=== PATIENT | male | born 1930 | race Two or more races ===

== ENCOUNTER 2017-02-11 13:24 | Emergency (ER) | payer OTHER ==
[~2017-02-11] VITALS: Ht 162.6 cm; Wt 58.5 kg
--- NOTE | 2017-02-11 13:25 | NUR ---
Bibra from home due to right side facial droop, last known well was last night. Patient recieved, awake, oriented to self only. No evidence of pain or discomfort noted. Patient sating well on room air, skin is warm to touch and non diaphoretic. Patient afebrile. Gowned and placed on tele monitor. medical office technologist at for ekg. Iv noted on rac 20. intact and patent.
--- NOTE | 2017-02-11 13:34 | NUR ---
Jacky gomez in ED - 02/11/17 at 1441 by LEONCIO Dadiology tech at for chest xray
--- NOTE | 2017-02-11 13:34 | NUR ---
customer data technician at bs for chest xray
--- NOTE | 2017-02-11 13:36 | NUR ---
Patient taken to ct for head ct
--- NOTE | 2017-02-11 14:20 | NUR ---
PATIENT ASSIGNED TO 316
[2017-02-11] MEDS ORDERED: CLOP75TA2 PO (14:25)
[2017-02-11] MEDS ORDERED: ATOR20TA PO (14:25)
[2017-02-11] MEDS ORDERED: METF500T4 PO ×3 (14:25)
[2017-02-11] MEDS ORDERED: ATEN25TA PO (14:25)
[2017-02-11] MEDS ORDERED: LISI10TA5 PO (14:25)
[2017-02-11] MEDS ORDERED: GLIP10TA11 PO (14:31)
[2017-02-11 14:38] LABS: APPEARANCE,URINE Clear (CLEAR); BILIRUBIN,URINE Negative (NEGATIVE); BLOOD, URINE Trace-intact Ery/uL (NEGATIVE); COLOR,URINE Yellow (YELLOW); KETONES,URINE Negative (NEGATIVE); LEUKOCYTE ESTERASE ,URINE Negative (NEGATIVE); NITRITE, URINE Negative (NEGATIVE); PROTEIN,URINE Negative (NEGATIVE); UGLUCOSE Negative (NEGATIVE)
[2017-02-11 14:51] LABS: ADD URINE CULTURE NO; BACTERIA,URINE None seen /HPF (None Seen); CANNABINOID, URINE NEGATIVE (NEGATIVE); PHENCYCLIDINE SCREEN,URINE NEGATIVE (NEGATIVE); RBC,URINE 0-2 /HPF (0-2); SQUAMOUS EPITHELIAL CELL,UR Few /HPF (None Seen)
[2017-02-11 14:58] LABS: BASOPHILS % (AUTO) 0.2 % (0.0-2.0); EOSINOPHILS # (AUTO) 0.3 /CMM (0.0-0.7); EOSINOPHILS % (AUTO) 5.1 % (0.0-6.0); HEMATOCRIT 35 % (39-51); LYMPHOCYTES # (AUTO) 2.3 /CMM (0.8-4.8); LYMPHOCYTES % (AUTO) 39.4 % (20.0-44.0); MEAN CORPUSCULAR HEMOGLOBIN 33 PG (26.0-33.0); MEAN CORPUSCULAR HGB CONC 34 g/dl (31.0-36.0); MEAN CORPUSCULAR VOLUME 96 fL (80-96); MONOCYTES # (AUTO) 0.4 /CMM (0.1-1.30); MONOCYTES % (AUTO) 7.7 % (2.0-12.0); NEUTROPHILS # (AUTO) 2.7 /CMM (1.8-8.9); NEUTROPHILS % (AUTO) 47.6 % (43.0-81.0); PLATELET COUNT (AUTO) 207 /CMM (150-450); RDW COEFFICIENT OF VARIATION 14.6 (11.5-15.0); RED BLOOD CELL COUNT(AUTO) 3.68 MIL/uL (4.5-6.0); WHITE BLOOD COUNT (AUTO) 5.7 K/uL (4.3-11.0)
[2017-02-11 15:09] LABS: CALCIUM, SERUM 8.7 mg/dL (8.5-10.1); CARBON DIOXIDE 31 mmol/L (21-32); CHLORIDE 107 mmol/L (98-107); CREATININE 1.1 mg/dL (0.6-1.3); GLUCOSE 104 mg/dL (74-106); POTASSIUM 3.9 mmol/L (3.5-5.1); SODIUM SERUM 146 mmol/L (136-145); UREA NITROGEN, BLOOD 13 mg/dL (7-18)
[2017-02-11 15:13] LABS: INR 1.03 (0.87-1.13); PROTHROMBIN TIME 10.7 SECS (9.5-12.7)
[2017-02-11 15:15] LABS: ALANINE AMINOTRANSFERASE 25 U/L (12-78); ALBUMIN 2.9 g/dL (3.4-5.0); ALCOHOL, BLOOD < 3 mg/dL (0-0); ALKALINE PHOSPHATASE 124 U/L (46-116); ASPARTATE AMINOTRANSFERASE 30 U/L (15-37); BILIRUBIN,DIRECT 0.2 mg/dL (0.0-0.2); BILIRUBIN,TOTAL 0.6 mg/dL (0.2-1.0); TOTAL PROTEIN, SERUM 7.3 g/dL (6.4-8.2)
[2017-02-11 15:17] LABS: TROPONIN I 0.031 ng/mL (0.00-0.056)
--- NOTE | 2017-02-11 15:32 | NUR ---
CALLED [facility], SPOKE WITH DOPE DRY HOUSE OPERATOR. AWAITING FOR ANITA PRESLEY TO CALL BACK.
[2017-02-11 15:40] LABS: THYROID STIMULATING HORMONE 1.683 uIU/mL (0.358-3.74)
--- NOTE | 2017-02-11 16:29 | NUR ---
RECEIVED A CALL FROM [facility] TRANSFER CLERK. PATIENT GOING TO [facility], ACCEPTED BY DR. PATEL. RN TO RN REPORT . ALS TRANSPORTATION ARRANGED BT [facility] ETA 9256
--- NOTE | 2017-02-11 16:41 | NUR ---
NOTIFIED MD SHERWOOD OF BP 169/95
--- NOTE | 2017-02-11 17:00 | NUR ---
report given to DILMA Wooten from [facility]
[2017-02-11 17:50] VITALS: BP 158/90
--- NOTE | 2017-02-11 17:53 | NUR ---
Patient was transferred to . Vital signs stable
== END 2017-02-11 17:55 | disposition short-term general hospital (02) ==
LOC: ER 13:26
DX: G93.40 Encephalopathy, unspecified (principal); D64.9 Anemia, unspecified; I10 Essential (primary) hypertension; E10.9 Type 1 diabetes mellitus without complications; E78.5 Hyperlipidemia, unspecified; F03.90 Unspecified dementia, unspecified severity, without behavioral disturbance, psychotic disturbance, mood disturbance, and anxiety; R79.1 Abnormal coagulation profile; R51 Headache; Z86.73 Personal history of transient ischemic attack (TIA), and cerebral infarction without residual deficits
CPT/HCPCS: 36415; 70450-TC; 71010-TC; 80048-TC; 80076-TC; 80305; 81000-TC; 82962-TC; 84443-TC; 84484-TC; 85025-TC; 85730-TC; A4606; G0480; Z7610

== ENCOUNTER 2017-06-16 18:23 | Inpatient (IN) | payer OTHER ==
[~2017-06-16] VITALS: Ht 167.6 cm; Wt 47.6 kg
[~2017-06-16 18:23] MED LIST: ATEN25TA PO; ATOR20TA PO; CLOP75TA2 PO; GLIP10TA11 PO; LISI10TA5 PO; METF500T4 PO
--- NOTE | 2017-06-16 18:30 | NUR ---
bIbra81 from home for low 02 saturation. Patient received on o2 via non rebreather @15lpm. Patient appears in distress. Skin is warm to touch and non diaphoretic. Per report patient is on hospice care and was put off hospice 10 mins prior rescue arrival. MD lazo at [facility]
--- NOTE | 2017-06-16 18:40 | NUR ---
bipap in placed bt Gil rt-- setting 06/04
[2017-06-16 18:41] VITALS: BP 96/41
--- NOTE | 2017-06-16 18:54 | NUR ---
laborer electroplating at bedside for blood draw
[2017-06-16 18:59] LABS: BASOPHILS % (AUTO) 0.2 % (0.0-2.0); EOSINOPHILS % (AUTO) 0.4 % (0.0-6.0); HEMATOCRIT 30 % (39-51); HEMOGLOBIN 9.4 g/dL (13.5-17.5); LYMPHOCYTES # (AUTO) 0.8 /CMM (0.8-4.8); LYMPHOCYTES % (AUTO) 12.2 % (20.0-44.0); MEAN CORPUSCULAR HEMOGLOBIN 32 PG (26.0-33.0); MEAN CORPUSCULAR HGB CONC 32 g/dl (31.0-36.0); MEAN CORPUSCULAR VOLUME 99 fL (80-96); MONOCYTES # (AUTO) 0.1 /CMM (0.1-1.30); MONOCYTES % (AUTO) 2.1 % (2.0-12.0); NEUTROPHILS # (AUTO) 5.4 /CMM (1.8-8.9); NEUTROPHILS % (AUTO) 85.1 % (43.0-81.0); PLATELET COUNT (AUTO) 112 /CMM (150-450); RED BLOOD CELL COUNT(AUTO) 3.01 MIL/uL (4.5-6.0); WHITE BLOOD COUNT (AUTO) 6.3 K/uL (4.3-11.0)
--- NOTE | 2017-06-16 19:01 | NUR ---
DR. SHERWOOD SAID TO HOLD OFF ON CT SCAN FOR NOW, ER WILL CALL WHEN READY.
[2017-06-16 19:12] LABS: INR 1.18 (0.87-1.13); PROTHROMBIN TIME 12.4 SECS (9.5-12.7)
[2017-06-16 19:15] LABS: ALBUMIN 1.8 g/dL (3.4-5.0); ALKALINE PHOSPHATASE 83 U/L (46-116); ASPARTATE AMINOTRANSFERASE 17 U/L (15-37); BILIRUBIN,DIRECT 0.1 mg/dL (0.0-0.2); BILIRUBIN,TOTAL 0.4 mg/dL (0.2-1.0); CALCIUM, SERUM 7.9 mg/dL (8.5-10.1); CARBON DIOXIDE 31 mmol/L (21-32); GLUCOSE 165 mg/dL (74-106); TOTAL PROTEIN, SERUM 6.9 g/dL (6.4-8.2); UREA NITROGEN, BLOOD 52 mg/dL (7-18)
--- NOTE | 2017-06-16 19:20 | NUR ---
report given to lele sinclair for continuity of care
[2017-06-16 19:24] LABS: ALANINE AMINOTRANSFERASE < 6 U/L (12-78)
[2017-06-16 19:27] LABS: CHLORIDE 135 mmol/L (98-107); POTASSIUM 2.6 mmol/L (3.5-5.1); SODIUM SERUM 173 mmol/L (136-145)
[2017-06-16 19:31] LABS: TROPONIN I 0.681 ng/mL (0.00-0.056)
--- NOTE | 2017-06-16 19:34 | NUR ---
200ml Urine output noted. Urine obtained & sent to lab. FC d/c per family request.
--- NOTE | 2017-06-16 19:38 | NUR ---
DIRECTOR OF CULTURE at bedside for ABG draw.
--- NOTE | 2017-06-16 19:39 | NUR ---
Dr. Ng at bedside for update on pt status.
--- NOTE | 2017-06-16 19:50 | NUR ---
Sent to CT via [facility].
--- NOTE | 2017-06-16 19:58 | NUR ---
pt back fr CT on continuous BIPAP w/ continuous cardiac monitoring, resp even & unlabored, nad noted. Family at bedside.
[2017-06-16] MEDS ORDERED: IV NS 0.9% 500 ML BAG IV ONE (20:00)
[2017-06-16 20:07] LABS: APPEARANCE,URINE Slightly Cloudy (CLEAR); BILIRUBIN,URINE Negative (NEGATIVE); BLOOD, URINE Trace-intact Ery/uL (NEGATIVE); COLOR,URINE Yellow (YELLOW); KETONES,URINE Negative (NEGATIVE); LEUKOCYTE ESTERASE ,URINE Negative (NEGATIVE); NITRITE, URINE Negative (NEGATIVE); PH,URINE 5.5 (5.0-8.0); PROTEIN,URINE 30 mg/dl (NEGATIVE); UGLUCOSE Negative (NEGATIVE); UROBILINOGEN,URINE 0.2 EU/dL (0.2)
--- NOTE | 2017-06-16 20:09 | NUR ---
CALLED NURSING SUP. FOR ICU BED
[2017-06-16 20:13] LABS: BACTERIA,URINE Few /HPF (None Seen); FINE GRANULAR CASTS,URINE Few /LPF (None Seen); HYALINE CASTS, URINE Few /LPF (None Seen); SQUAMOUS EPITHELIAL CELL,UR Rare /HPF (None Seen); WBC,URINE 0-2 /HPF (0-3)
[2017-06-16] MEDS ORDERED: PIPERACILLIN /TAZOBACTAM 2.25 G VIAL IV ONE (20:29)
[2017-06-16] MEDS ORDERED: VANCOMYCIN 1 GM in IV D5W 250 ML IV ONE (20:30)
[2017-06-16] MEDS ORDERED: VANCOMYCIN 1 GM VIAL ONE (20:30)
[2017-06-16] MEDS ORDERED: IV NS 0.9% 1,000 ML BAG IV ONE (20:30)
[2017-06-16] MEDS ORDERED: POTASSIUM CL. PREMIX PERIPHER. 50 ML ONE ×2 (20:30→21:48)
[2017-06-16] MEDS ORDERED: PIPERACILLIN /TAZOBACTAM 2.25 G in IV D5W 50 ML IV ONE (20:30)
[2017-06-16] MEDS ORDERED: ASPIRIN 300 MG/SUPP.RECT RC ONE ×2 (20:30→20:31)
[2017-06-16 20:32] LABS: ABG BASE EXCESS -0.5 mmol/L; ABG PCO2 34.2 mmHg (35.0-45.0); ABG PH 7.447 (7.350-7.450); ABG PO2 67.1 mmHg (75.0-100.0); AaDO2 611.7 mmHg; COHb 0.1 % (0.5-1.5); MetHb 0.5 % (0.0-1.5); O2Hb 91.4 % (94.0-97.0); PEEP,BG 5 cm H2O; SITE, ABG Right Radial; VENT MODE, BG Bipap 15/5 rr20
[2017-06-16] MEDS: POTASSIUM CL. PREMIX PERIPHER. 50 ML IV SCH ×3 (21:01→23:18)
--- NOTE | 2017-06-16 21:14 | NUR ---
Aron PICC RN at bedside for PICC line insertion.
--- NOTE | 2017-06-16 21:20 | NUR ---
Report given to Kimmy NUT TIGHTENER for ROBERTO.
[2017-06-16] MEDS ORDERED: IV NS 0.9% 1,000 ML IV PRN (21:38)
--- NOTE | 2017-06-16 21:52 | NUR ---
Repeat CXR at bedside, verify placement PICC line.
[2017-06-16] MEDS ORDERED: ONDANSETRON HCL/PF 4 MG/2 ML VIAL IVP PRN (22:00)
[2017-06-16] MEDS ORDERED: HYDROCODONE/APAP 5/325MG 1 EACH TABLET PO PRN (22:00)
[2017-06-16] MEDS ORDERED: MAGNESIUM HYDROXIDE 30 ML UDC PO PRN (22:00)
[2017-06-16] MEDS ORDERED: Z GUARD REMEDY 2 OZ OINT TP PRN (22:00)
[2017-06-16] MEDS ORDERED: MAG HYDROX/AL HYDROX/SIMETH 30 ML UDC PO PRN (22:00)
[2017-06-16] MEDS ORDERED: ACETAMINOPHEN 325 MG TABLET PO PRN (22:00)
--- NOTE | 2017-06-16 22:22 | NUR ---
PROCUREMENT AGENT at bedside to assist pt transfer via ALS protocol to ICU rm [id number].
--- NOTE | 2017-06-16 22:30 | NUR ---
ADMISSION. RECEIVED THE PT FROM ER VIA GURNEY. PT OBTUNDED. NONVERBAL. DOES NOT FOLLOW COMMANDS. HISTOLOGIC TECHNICIAN SHOWING NSR. LT CHEST WALL PACEMAKER.RT UPPER ARM PICC LINE. IVF NS 125ML/H.HOB ELEVATED. NPO. AFEBRILE. WOUND PICTURE TAKEN AND PLACED IN THE CHART. HOB ELEVATED. TURN AND REPOSITION Q2H. BIPAP ON. SETTINGS 15/5, RATE 20, FIO2 100%. SAT 98%. NO ACUTE DISTRESS NOTED. TURN AND REPOSITION Q2H, WILL CONTINUE TO MONITOR VITALS.
[2017-06-16 22:48] VITALS: BP 131/67
[2017-06-16 23:00] VITALS: BP 113/44
[2017-06-16 23:02] VITALS: BP 130/62
[2017-06-16 23:16] VITALS: BP 113/44
[2017-06-16 23:30] VITALS: BP 109/54
[2017-06-17] VITALS (37 sets, daily range): BP systolic 98–142; BP diastolic 41–76
[2017-06-17] MEDS ORDERED: POTASSIUM CL. PREMIX PERIPHER. 50 ML ONE (00:07)
[2017-06-17] MEDS: POTASSIUM CL. PREMIX PERIPHER. 50 ML IV SCH ×6 (00:14→12:53)
--- NOTE | 2017-06-17 01:17 | NUR ---
CLEANING MANAGER. RADHA 0000 NOT GIVEN, LAST DOSE WAS 2044, SHYAM UP MADE AWARE
--- NOTE | 2017-06-17 01:25 | NUR ---
ORTHOPEDIC SHOES SALESPERSON. POTASSIUM TOTAL 4 BAGS. GIVEN.
--- NOTE | 2017-06-17 03:24 | NUR ---
WASTE DISPOSAL LEAKAGE TESTER. AM CARE, ORAL CARE, BED BATH GIVEN. LINEN CHANGED. REMAINING SAME BIPAP SETTING TOLERATED WELL. SAT 98%. NO ACUTE DISTRESS NOTED, NON DESTRUCTIVE EVALUATION SPECIALIST SHOWING NSR. IV RT UPPER ARM PICC LINE. IVF NS 125ML/H. HOB ELEVATED. NPO. TURN AND REPOSITION Q2H. WILL CONTINUE TO MONITOR VITALS.
[2017-06-17 04:35] LABS: BASOPHILS % (AUTO) 0.1 % (0.0-2.0); EOSINOPHILS % (AUTO) 0.4 % (0.0-6.0); HEMATOCRIT 27 % (39-51); HEMOGLOBIN 8.8 g/dL (13.5-17.5); LYMPHOCYTES # (AUTO) 0.7 /CMM (0.8-4.8); MEAN CORPUSCULAR HEMOGLOBIN 36 PG (26.0-33.0); MEAN CORPUSCULAR HGB CONC 33 g/dl (31.0-36.0); MEAN CORPUSCULAR VOLUME 108 fL (80-96); MONOCYTES # (AUTO) 0.1 /CMM (0.1-1.30); MONOCYTES % (AUTO) 1.5 % (2.0-12.0); NEUTROPHILS # (AUTO) 7.2 /CMM (1.8-8.9); PLATELET COUNT (AUTO) 82 /CMM (150-450); RDW COEFFICIENT OF VARIATION 18.3 (11.5-15.0); RED BLOOD CELL COUNT(AUTO) 2.46 MIL/uL (4.5-6.0); WHITE BLOOD COUNT (AUTO) 8.1 K/uL (4.3-11.0)
[2017-06-17 04:49] LABS: CARBON DIOXIDE 27 mmol/L (21-32); CREATININE 1.9 mg/dL (0.6-1.3); GLUCOSE 168 mg/dL (74-106); MAGNESIUM 2.4 mg/dL (1.8-2.4); PHOSPHORUS 2.9 mg/dL (2.5-4.9); POTASSIUM 3.1 mmol/L (3.5-5.1); UREA NITROGEN, BLOOD 53 mg/dL (7-18)
[2017-06-17 04:57] LABS: CHLORIDE 136 mmol/L (98-107); SODIUM SERUM 173 mmol/L (136-145)
[2017-06-17 04:58] LABS: CHOLESTEROL 111 mg/dL (<200); HDL CHOLESTEROL 11 mg/dL (40-60); LDL 69 mg/dL (0-99); THYROID STIMULATING HORMONE 1.232 uIU/mL (0.358-3.74); TRIGLYCERIDES 130 mg/dL (30-150)
--- NOTE | 2017-06-17 05:08 | NUR ---
PT REMAINS ON BIPAP. TOLERATING SETTINGS. PT IS NON RESPONSIVE. FIO2 TITRATED TO 60% RN NOTIFIED. O2 SAT 100%. BIPAP ALARMS SET AND AUDIBLE.
[2017-06-17] MEDS ORDERED: PIPERACILLIN /TAZOBACTAM 3.375 G VIAL IV ONE (05:13)
[2017-06-17] MEDS: PIPERACILLIN /TAZOBACTAM 3.375 G in IV D5W 50 ML IV SCH ×3 (05:21)
[2017-06-17 05:32] LABS: BAND % (MANUAL) 38 % (0.0-5.0); LYMPHOCYTES % (MANUAL) 8 % (16-48); METAMYELOCYTES % 1 % (0-0); MONOCYTES % (MANUAL) 1 % (0-11.0); NEUTROPHILS % (MANUAL) 52 (42-76)
[2017-06-17] MEDS ORDERED: IV D5W 1,000 ML IV PRN (06:00)
[2017-06-17] MEDS ORDERED: FEE PK DOSING 1 MIN EA MC ONE ×2 (06:46→11:40)
--- NOTE | 2017-06-17 06:55 | NUR ---
IMPROVEMENT SPECIALIST. CRITICAL LAB CALLED FOR Jake TRAN RESULT. >35.2. PAGED GABE. ORDERED . VQ SCAN. CALLED PT DAUGHTER YUNIER FOR CONSENT . SHE WANTS ASK BROTHER. WE ARE WAITING FOR CALL BACK.
--- NOTE | 2017-06-17 07:39 | NUR ---
RT PATIENT REC'D ON BIPAP WITH SETTINGS SET PER MD. PATIENT TOLERATING WELL. BIPAP ALARMS CHECKED + AUDIBLE. JULIANNA CUTLER AT HOB. CONT CURRENT PLAN OF CARE. Addendum: 06/17/17 at 1326 by IRINA FONG RT Amended: Links added.
[2017-06-17] MEDS: PANTOPRAZOLE 40 MG VIAL IV SCH (08:16)
[2017-06-17] MEDS: glipiZIDE 10 MG TABLET PO SCH ×2 (08:16→17:36)
[2017-06-17] MEDS: CLOPIDOGREL BISULFATE 75 MG TABLET PO SCH (08:17)
[2017-06-17] MEDS: ATENOLOL 25 MG TABLET PO SCH ×2 (08:17→17:00)
[2017-06-17 08:53] LABS: THYROID STIMULATING HORMONE 1.292 uIU/mL (0.358-3.74)
[2017-06-17] MEDS ORDERED: Z GUARD REMEDY 2 OZ OINT TP PRN (10:30)
[2017-06-17] MEDS ORDERED: HYDROGEL DRESSING 90 GM TUBE TP PRN (10:30)
--- NOTE | 2017-06-17 10:31 | NUR ---
WOUND CARE CONSULT PATIENT SEEN AND SKIN INTEGRITY ASSESSMENT DONE. SEE SUPERVISOR PILE DRIVING ASSESSMENT IN PCS FOR TODAY ALONG WITH ALL RECOMMENDATIONS. PATIENT WITH YAMILETH AT 13, PATIENT NOTED TO BE VERY BONY AND FRAIL. PATIENT PRESENTS WITH SACRAL STAGE 2 PRESSURE ULCER AND LEFT OUTER EAR INTACT DTI POA. CONTINUE USE OF Z GUARD FOR SKIN/MOISTURE PROTECTION, CONTINUE TURNING Q 2 HOURS PATIENT CONDITION PERMITS, CONTINUE BILATERAL HEEL FLOATING BEST POSSIBLE. PATIENT NOTED TO HAVE SEVERE BILATERAL LE CONTRACTURES AND OFF LOADING IS DIFFICULT. 1ST STEP LOW AIRLOSS MATTRESS IN PLACE FOR TMT AND SKIN MANAGEMENT. CONTINUE ALL PRESSURE ULCER PREVENTION MEASURES PER CURRENT PLAN OF CARE. ALL DISCUSSED WITH NURSING AT THE BEDSIDE. Addendum: 06/17/17 at 1036 by TERESE CHEN WNDNU Amended: Links added.
[2017-06-17 10:34] LABS: CALCIUM, SERUM 6.9 mg/dL (8.5-10.1); CARBON DIOXIDE 28 mmol/L (21-32); CREATININE 2.1 mg/dL (0.6-1.3); GLUCOSE 224 mg/dL (74-106); POTASSIUM 3.2 mmol/L (3.5-5.1); UREA NITROGEN, BLOOD 50 mg/dL (7-18)
[2017-06-17 10:52] LABS: SODIUM SERUM 172 mmol/L (136-145)
[2017-06-17 10:53] LABS: CHLORIDE 134 mmol/L (98-107)
[2017-06-17] MEDS ORDERED: DEXTROSE 50%-WATER 50 ML DISP.SYRIN IV PRN (11:30)
[2017-06-17] MEDS: BLOOD SUGAR DIAGNOSTIC 1 EACH STRIP IN SCH ×3 (11:41→23:35)
[2017-06-17] MEDS: PIPERACILLIN /TAZOBACTAM 2.25 G in IV D5W 50 ML IV SCH ×3 (11:41→23:35)
[2017-06-17] MEDS: INSULIN REGULAR, HUMAN 100 UNIT/ML 3 ML VIAL SQ PRN ×2 (12:03→23:39)
[2017-06-17] MEDS: Potassium Chloride 20 MEQ in IV D5/0.45 NACL 1,000 ML IV PRN ×2 (14:00→22:15)
--- NOTE | 2017-06-17 15:12 | NUR ---
CUFF TURNER MACHINE OPERATOR NOTE 0720: Received patient obtunded. On Bipap, no respiratory distress noted at this time. VSS, A pacing 70 on the monitor. EFRAÍN PICC intact, IVF infusing as ordered, on D5W at this time. Localizes to deep pain. 0800: RT placed FIO2 from 60% to 40%, patient tolerated so far. 0830: Placed Chong cath as ordered. 0900: S/E by Dr. Soto, said ok to DC VQ scan. 1300: changed IVF with D5 1/2 NS @ 125. 1330: S/E by Dr. Martinez, no new order at this time. Patient able to open eyes. 1500: forest ranger technician at bedside.
[2017-06-17] MEDS: HYDROGEL DRESSING 90 GM TUBE TP SCH (16:48)
[2017-06-17 17:38] LABS: URINE SODIUM, RANDOM 13 mmol/l (40-220)
[2017-06-17] MEDS ORDERED: ATORVASTATIN 10 MG TABLET PO SCH (18:00)
[2017-06-17 18:03] LABS: OSMOLALITY,URINE 533 mOS/kg (340-1090)
--- NOTE | 2017-06-17 19:34 | NUR ---
STEAM FITTER SUPERVISOR. INITIAL ASSESSMENT. RECEIVED THE PT REST ON THE BED. NONVERBAL. DOES NOT FOLLOW COMMANDS, HAO UPPER EXTREMITY AND HAO LOWER EXTREMITY SEVERE WEAKNESS.BIPAP ON. SETTINGS 15/5, RATE 20, FIO2 50%TEXTILE CONSERVATOR SHOWING NSR. IV RT UPPER ARM PICC LINE. IVF D51/2NS WITH 20MEQ POTASSIUM 125ML/H. NPO. HOB ELEVATED. FC PATENT.TURN AND REPOSITION Q2H. WILL CONTINUE TO MONITOR VITALS,
--- NOTE | 2017-06-17 19:49 | NUR ---
PT RECEIVED ON BIPAP ON NOTED SETTINGS. TOLERATING BIPAP SETTINGS NO DISTRESS. ALARMS SET AND AUDIBLE. AMBU BAG AT BEDSIDE. WILL CONTINUE TO MONITOR. Addendum: 06/17/17 at 1951 by CARY SHELDON RT Amended: Links added.
--- NOTE | 2017-06-17 21:11 | NUR ---
CREPE SOLE WIRE BRUSHER. QHD2JOEOAD CALLED FOR VENOUS STUDY RESULT. GABE MADE AWARE RESULT.
[2017-06-17] MEDS: VANCOMYCIN 500 MG in IV D5W 100 ML IV SCH (22:15)
[2017-06-18] VITALS (39 sets, daily range): BP systolic 96–139; BP diastolic 30–71
--- NOTE | 2017-06-18 03:37 | NUR ---
WINDOW CUTTER. AM CARE, ORAL CARE, BED BATH GIVEN.LINEN CHANGED. REMAINING SAME BIPAP SETTING TOLERATED WELL. SAT 98%. YARN MERCERIZER OPERATOR SHOWING NSR. IV RT UPPER ARM PICC LINE. IVF D5W POTASSIUM 20MEQ 125ML/H. FC PATENT. HOB ELEVATED, NPO, TURN AND REPOSITION Q2H. AFEBRILE WILL CONTINUE TO MONITOR VITALS.
[2017-06-18 04:53] LABS: EOSINOPHILS # (AUTO) 0.1 /CMM (0.0-0.7); EOSINOPHILS % (AUTO) 1.1 % (0.0-6.0); HEMATOCRIT 26 % (39-51); HEMOGLOBIN 8.9 g/dL (13.5-17.5); LYMPHOCYTES % (AUTO) 10.8 % (20.0-44.0); MEAN CORPUSCULAR HEMOGLOBIN 36 PG (26.0-33.0); MEAN CORPUSCULAR HGB CONC 34 g/dl (31.0-36.0); MEAN CORPUSCULAR VOLUME 106 fL (80-96); MONOCYTES # (AUTO) 0.1 /CMM (0.1-1.30); MONOCYTES % (AUTO) 1.6 % (2.0-12.0); NEUTROPHILS # (AUTO) 8.2 /CMM (1.8-8.9); NEUTROPHILS % (AUTO) 86.5 % (43.0-81.0); PLATELET COUNT (AUTO) 102 /CMM (150-450); RDW COEFFICIENT OF VARIATION 18.2 (11.5-15.0); RED BLOOD CELL COUNT(AUTO) 2.46 MIL/uL (4.5-6.0); WHITE BLOOD COUNT (AUTO) 9.4 K/uL (4.3-11.0)
[2017-06-18] MEDS: BLOOD SUGAR DIAGNOSTIC 1 EACH STRIP IN SCH ×3 (05:08→17:00)
[2017-06-18] MEDS: PIPERACILLIN /TAZOBACTAM 2.25 G in IV D5W 50 ML IV SCH ×3 (05:09→17:00)
[2017-06-18 05:28] LABS: EOSINOPHILS % (MANUAL) 1 % (0-4); LYMPHOCYTES % (MANUAL) 14 % (16-48); MONOCYTES % (MANUAL) 3 % (0-11.0); NEUTROPHILS % (MANUAL) 82 (42-76)
[2017-06-18 05:29] LABS: ALANINE AMINOTRANSFERASE 12 U/L (12-78); ALKALINE PHOSPHATASE 74 U/L (46-116); ASPARTATE AMINOTRANSFERASE 25 U/L (15-37); BILIRUBIN,TOTAL 0.5 mg/dL (0.2-1.0); CALCIUM, SERUM 6.8 mg/dL (8.5-10.1); CARBON DIOXIDE 22 mmol/L (21-32); GLUCOSE 82 mg/dL (74-106); MAGNESIUM 2.1 mg/dL (1.8-2.4); PHOSPHORUS 1.7 mg/dL (2.5-4.9); POTASSIUM 4.1 mmol/L (3.5-5.1); TOTAL PROTEIN, SERUM 5.9 g/dL (6.4-8.2); UREA NITROGEN, BLOOD 44 mg/dL (7-18)
[2017-06-18 05:43] LABS: ALBUMIN 1.4 g/dL (3.4-5.0); CHLORIDE 130 mmol/L (98-107); SODIUM SERUM 164 mmol/L (136-145)
[2017-06-18 05:44] LABS: TROPONIN I 0.688 ng/mL (0.00-0.056)
[2017-06-18] MEDS: PANTOPRAZOLE 40 MG VIAL IV SCH (08:28)
[2017-06-18] MEDS: CLOPIDOGREL BISULFATE 75 MG TABLET PO SCH (08:29)
[2017-06-18] MEDS: glipiZIDE 10 MG TABLET PO SCH ×2 (08:29→18:30)
[2017-06-18] MEDS: ATENOLOL 25 MG TABLET PO SCH ×2 (08:29→16:27)
[2017-06-18] MEDS: HYDROGEL DRESSING 90 GM TUBE TP SCH (08:29)
[2017-06-18 09:13] LABS: URINE SODIUM, RANDOM 17 mmol/l (40-220)
[2017-06-18] MEDS: Potassium Chloride 20 MEQ in IV D5/0.45 NACL 1,000 ML IV PRN ×2 (09:45→17:52)
[2017-06-18 09:52] LABS: OSMOLALITY,URINE 530 mOS/kg (340-1090)
--- NOTE | 2017-06-18 10:32 | NUR ---
PACKING MACHINE OPERATOR NOTE 0720: Received patient obtunded, responds to deep pain only. On Bipap, unable to tolerate off Bipap, 88% on NRB mask. Remained NPO. EFRAÍN PICC intact, IVF infusing as ordered. Chong cath intact, noted with jacob colored urine with sediments. VSS at this time. 0820: S/E by Dr. Martinez, no new order at this time, also aware Plavix not given for NPO. 0900: S/E by Dr. Soto, no new order at this time. 0945: S/E by Dr. Pratt, made aware patient not having anticoags for NPO, Plavix on hold. Awaiting [facility] F/U for possible transfer. Noted with SBO 81, checked again and SBP 130's. Will continue to monitor. 1030: No any significant changes noted at this time.
[2017-06-18] MEDS: INSULIN REGULAR, HUMAN 100 UNIT/ML 3 ML VIAL SQ PRN ×2 (12:36→17:01)
[2017-06-18] MEDS: POTASSIUM PHOSPHATE MM 7.5 MMOL in IV D5W 100 ML IV SCH ×2 (16:27→19:19)
--- NOTE | 2017-06-18 20:00 | NUR ---
horticultural specialty grower field notes received pts on bed , obtunded , on tele -Sr ,A PACE ON THE MONITOR, sating 95% on bipap 15/50 rate =20 fio2=40%, no sob no distress noted no facial grimaces noted , pts is on npo status on d5 1/2 ns with 20meq of kcl running at 125 ml /hr infusing well. all due meds given as ordered all needs attended too call light within reach , with picc line on r ua with 3 lumen intact and patent.f/c intact and patent draining with small amt of yellowish urine output , kept pts clean dry and comfortable , turned and reposition q 2hrs and prn .will continue to monitor pts
[2017-06-18] MEDS: VANCOMYCIN 500 MG in IV D5W 100 ML IV SCH (22:50)
[2017-06-19] VITALS (38 sets, daily range): BP systolic 61–170; BP diastolic 21–71
--- NOTE | 2017-06-19 | NUR ---
agriculture internship notes blood sugar at 12mn is 156mg/dl 2 units of regular insulin given per sliding scale . v/s stable afebrile .pts remains on d5 1/2 ns with 20 meq kcl at 125 cc/hr .will check blood sugar again at 6am.
[2017-06-19] MEDS: PIPERACILLIN /TAZOBACTAM 2.25 G in IV D5W 50 ML IV SCH ×5 (00:21→23:39)
[2017-06-19] MEDS: INSULIN REGULAR, HUMAN 100 UNIT/ML 3 ML VIAL SQ PRN ×4 (00:24→17:15)
[2017-06-19] MEDS: BLOOD SUGAR DIAGNOSTIC 1 EACH STRIP IN SCH ×4 (00:25→17:14)
[2017-06-19] MEDS: Potassium Chloride 20 MEQ in IV D5/0.45 NACL 1,000 ML IV PRN (01:52)
[2017-06-19 04:45] LABS: BASOPHILS % (AUTO) 0.1 % (0.0-2.0); EOSINOPHILS # (AUTO) 0.1 /CMM (0.0-0.7); EOSINOPHILS % (AUTO) 1.1 % (0.0-6.0); HEMATOCRIT 26 % (39-51); HEMOGLOBIN 9.2 g/dL (13.5-17.5); LYMPHOCYTES # (AUTO) 1.2 /CMM (0.8-4.8); LYMPHOCYTES % (AUTO) 12.3 % (20.0-44.0); MEAN CORPUSCULAR HEMOGLOBIN 38 PG (26.0-33.0); MEAN CORPUSCULAR HGB CONC 36 g/dl (31.0-36.0); MEAN CORPUSCULAR VOLUME 107 fL (80-96); MONOCYTES # (AUTO) 0.2 /CMM (0.1-1.30); MONOCYTES % (AUTO) 1.7 % (2.0-12.0); NEUTROPHILS # (AUTO) 8.3 /CMM (1.8-8.9); NEUTROPHILS % (AUTO) 84.8 % (43.0-81.0); PLATELET COUNT (AUTO) 83 /CMM (150-450); RDW COEFFICIENT OF VARIATION 18.5 (11.5-15.0); WHITE BLOOD COUNT (AUTO) 9.8 K/uL (4.3-11.0)
[2017-06-19 05:00] LABS: CALCIUM, SERUM 6.8 mg/dL (8.5-10.1); CARBON DIOXIDE 20 mmol/L (21-32); GLUCOSE 93 mg/dL (74-106); MAGNESIUM 1.9 mg/dL (1.8-2.4); PHOSPHORUS 3.2 mg/dL (2.5-4.9); POTASSIUM 4.5 mmol/L (3.5-5.1); UREA NITROGEN, BLOOD 39 mg/dL (7-18)
[2017-06-19 05:10] LABS: CHLORIDE 130 mmol/L (98-107); SODIUM SERUM 163 mmol/L (136-145)
[2017-06-19 05:16] LABS: EOSINOPHILS % (MANUAL) 2 % (0-4); LYMPHOCYTES % (MANUAL) 14 % (16-48); MONOCYTES % (MANUAL) 3 % (0-11.0); NEUTROPHILS % (MANUAL) 81 (42-76)
--- NOTE | 2017-06-19 05:28 | NUR ---
agriculturist notes pts blood sugar for 6am is 73 mg/dl =no coverage given per sliding scale pts continue on ivf d5 1/2 ns with 20 meq of kcl at 125cc/hr .
--- NOTE | 2017-06-19 08:00 | NUR ---
PT PLACED OFF BIPAP ONTO NRB. RONAL WELL RN AWARE
[2017-06-19] MEDS: glipiZIDE 10 MG TABLET PO SCH ×2 (08:23→17:34)
[2017-06-19] MEDS: ATENOLOL 25 MG TABLET PO SCH ×2 (08:23→17:00)
[2017-06-19] MEDS: CLOPIDOGREL BISULFATE 75 MG TABLET PO SCH (08:23)
[2017-06-19] MEDS: PANTOPRAZOLE 40 MG VIAL IV SCH (08:39)
[2017-06-19] MEDS: HYDROGEL DRESSING 90 GM TUBE TP SCH (08:39)
[2017-06-19] MEDS: IV D5W 1,000 ML IV PRN ×2 (09:53→18:21)
[2017-06-19] MEDS ORDERED: MORPHINE SULFATE INJ 2 MG/ML DISP.SYRIN IV PRN (13:00)
[2017-06-19] MEDS ORDERED: NOREPINEPHRINE 16 MG in IV D5W 500 ML IV PRN (17:00)
--- NOTE | 2017-06-19 17:47 | NUR ---
CNA PCT NOTE Received patient in am,on Bipap, placed on NRB mask 15LPM will continue to monitor. Chong cath intact, noted with minimal jacob colored urine with sediments. Remained NPO. Patient still obtunded, unable to comprehend. Noted left arm flaccid, right arm weakness and BLE rigid. EFRAÍN PICC intact. IVF infusing well. Dr. Rajan changed IVF from D5 1/2NS with KCL to D5W @ 100. S/E by Dr. Soto, 95% on NRB mask, will continue to monitor. Had to place patient back on Bipap @ 1230 for O2 sat 85-87% on 15LPM O2 via NRB. S/E by Dr. Pratt, no new order at this time. @ 1700, visited by family and updated re: patient's condition. SBP 90's at this time, said he will talk to other family members re: the POC. Other family members will visit tomorrow and discuss POC. Kept clean, warm and dry. Needs attended. Noted with good large BM, not sent to lab for CDiff because it formed.
--- NOTE | 2017-06-19 19:45 | NUR ---
ICU/NEWS ANCHOR RECEIVED REPORT FROM DAY NURSE. PT IS OBTUNDED. PT IS BIPAP MASK NOT TOLERATING CURRENT SETTINGS, SATURATION IS 84%. RT WAS CALLED TO INCREASE FIO2. PT ALSO HAS LEFT CHEST WALL PACEMAKER, PT AV PACING PT IS CURRENTLY NPO. FITZGERALD CATH DRAINING YELLOW AND SEDIMENTS URINE. PT HAS A FEW SKIN ISSUES THAT ARE DISCUSSED ON FLOW SHEET. PT TURNED AND REPOSITIONED FOR COMFORT AND CARE. NO ACUTE DISTRESS SEEN AT THIS TIME, PT APPEARS COMFORTABLE. WILL MONITOR THE PT.
--- NOTE | 2017-06-19 20:09 | NUR ---
PT RECEIVED ON BIPAP ON NOTED SETTINGS. TOLERATING BIPAP SETTINGS NO DISTRESS. ALARMS SET AND AUDIBLE. AMBU BAG AT BEDSIDE. WILL CONTINUE TO MONITOR. Addendum: 06/19/17 at 2009 by MEGHNA GOMEZ RT Amended: Links added.
--- NOTE | 2017-06-19 20:20 | NUR ---
ICU/DIRECTOR OF VOCATIONAL TRAINING RT CAME TO INCREASE FIO2, FROM 80 TO 100%. SATURATION WENT FROM 84% TO 94-95%. WILL CONTINUE TO MONITOR THIS PT.
[2017-06-19] MEDS: VANCOMYCIN 500 MG in IV D5W 100 ML IV SCH (22:00)
--- NOTE | 2017-06-19 22:05 | NUR ---
ICU/FOOD SERVICE ORDER CLERK VANCO LEVEL IS 16, CHARGE NURSE MADE AWARE OF THIS. VANCO IV WAS HUNG UP.
[2017-06-20] VITALS (37 sets, daily range): BP systolic 55–143; BP diastolic 20–73
--- NOTE | 2017-06-20 00:10 | NUR ---
ICU/PACKAGING ASSOCIATE ACCU CHECK WAS DONE; BLOOD SUGAR WAS 64, THERE IS NO COVERAGE FOR THIS. WILL CONTINUE TO MONITOR THIS PT'S BLOOD SUGAR.
[2017-06-20] MEDS: BLOOD SUGAR DIAGNOSTIC 1 EACH STRIP IN SCH ×4 (00:14→17:55)
--- NOTE | 2017-06-20 02:40 | NUR ---
ICU/MANAGER APPLICATION AM CARE GIVEN, ALONG WITH ORAL CARE PROVIDED. PT TOLERATED THIS WELL. PT REMAINS ON CURRENT BIPAP SETTINGS, WITH SATURATION AT 94%. PT WAS THEN TURNED AND REPOSITIONED FOR COMFORT AND CARE. WILL CONTINUE TO MONITOR THIS PT. NO ACUTE DISTRESS NOTED AT THIS TIME,
--- NOTE | 2017-06-20 04:10 | NUR ---
ICU/VIDEO ENGINEER AM LABS WERE DONE, WAIT LAB RESULTS. PT WAS TURNED AND REPOSITIONED FOR COMFORT AND CARE.
[2017-06-20 04:42] LABS: BASOPHILS % (AUTO) 0.1 % (0.0-2.0); HEMATOCRIT 26 % (39-51); HEMOGLOBIN 9.1 g/dL (13.5-17.5); LYMPHOCYTES # (AUTO) 0.8 /CMM (0.8-4.8); LYMPHOCYTES % (AUTO) 7.7 % (20.0-44.0); MEAN CORPUSCULAR HEMOGLOBIN 37 PG (26.0-33.0); MEAN CORPUSCULAR HGB CONC 35 g/dl (31.0-36.0); MEAN CORPUSCULAR VOLUME 105 fL (80-96); MONOCYTES # (AUTO) 0.1 /CMM (0.1-1.30); MONOCYTES % (AUTO) 1.2 % (2.0-12.0); NEUTROPHILS # (AUTO) 9.3 /CMM (1.8-8.9); PLATELET COUNT (AUTO) 80 /CMM (150-450); RDW COEFFICIENT OF VARIATION 18.3 (11.5-15.0); RED BLOOD CELL COUNT(AUTO) 2.51 MIL/uL (4.5-6.0); WHITE BLOOD COUNT (AUTO) 10.3 K/uL (4.3-11.0)
[2017-06-20 05:00] LABS: CALCIUM, SERUM 6.8 mg/dL (8.5-10.1); CARBON DIOXIDE 20 mmol/L (21-32); CHLORIDE 124 mmol/L (98-107); CREATININE 2.1 mg/dL (0.6-1.3); GLUCOSE 101 mg/dL (74-106); MAGNESIUM 1.7 mg/dL (1.8-2.4); POTASSIUM 4.1 mmol/L (3.5-5.1); UREA NITROGEN, BLOOD 38 mg/dL (7-18)
[2017-06-20 05:02] LABS: SODIUM SERUM 157 mmol/L (136-145)
--- NOTE | 2017-06-20 05:25 | NUR ---
ICU/DIRECTOR OF AGRONOMY CRITICAL LAB OF NA 157, CHARGE NURSE AWARE.WAS HIGHER THE DAY BEFORE, AT 163.
[2017-06-20 05:52] LABS: BAND % (MANUAL) 4 % (0.0-5.0); NEUTROPHILS % (MANUAL) 94 (42-76); REACTIVE LYMPHOCYTES 2 % (0-0)
[2017-06-20 05:57] LABS: LYMPHOCYTES % (MANUAL) 0 % (16-48)
[2017-06-20] MEDS: PIPERACILLIN /TAZOBACTAM 2.25 G in IV D5W 50 ML IV SCH ×3 (06:08→17:05)
[2017-06-20] MEDS: IV D5W 1,000 ML IV PRN ×2 (06:18→17:05)
--- NOTE | 2017-06-20 06:57 | NUR ---
ICU/GUEST ROOM ATTENDANT PT WAS CHANGED LAST TIME BEFORE THE NEXT SHIFT, PT HAS LOSE STOOL. SAMPLE WAS COLLECTED AND SENT TO LAB FOR C-DIFF.
--- NOTE | 2017-06-20 07:45 | NUR ---
ICU/RN - Notes Received pt in bed, obtunded. On Bipap with FiO2 100%, tachypneic with RR 30's. All four extremities flaccid. On telemetry AV pacing 70. Chong catheter intact, draining urine to gravity. EFRAÍN PICC line intact with IVF infusing well. Pt DNR/DNI code status. Safety and comfort measures in place. Pt repositioned for comfort. Will continue to monitor pt closely.
[2017-06-20] MEDS: glipiZIDE 10 MG TABLET PO SCH ×2 (08:07→17:55)
[2017-06-20] MEDS: ATENOLOL 25 MG TABLET PO SCH ×2 (08:08→16:03)
[2017-06-20] MEDS: CLOPIDOGREL BISULFATE 75 MG TABLET PO SCH (08:08)
[2017-06-20] MEDS: HYDROGEL DRESSING 90 GM TUBE TP SCH (08:08)
[2017-06-20] MEDS: PANTOPRAZOLE 40 MG/PACK PACK PO SCH (08:08)
--- NOTE | 2017-06-20 09:00 | NUR ---
ICU/RN - Notes PO medications non administered, as pt is obtunded and high risk for aspiration. Pt is also DNI status.
[2017-06-20] MEDS ORDERED: Magnesium 1GM/D5W 100ML PREMIX 100 ML IV SCH (09:53)
[2017-06-20] MEDS: INSULIN REGULAR, HUMAN 100 UNIT/ML 3 ML VIAL SQ PRN ×2 (11:13→17:55)
--- NOTE | 2017-06-20 14:58 | NUR ---
ICU/RN - Notes Dr Pratt notified pt positive for C. Diff in stool, with orders to start PO vanco and insert NGT. Explained to family the need to insert NGT to treat infection, however family refused insertion of NG tube stating, "no heroic measures." Addendum: 06/20/17 at 1512 by MANN ODELL RN Flagcarlos IV ordered by
[2017-06-20] MEDS: METRONIDAZOLE 500MG/ NS 100ML 500 MG in PREMIX 1 EA IV SCH ×2 (17:48→23:40)
--- NOTE | 2017-06-20 18:35 | NUR ---
ICU/RN - Notes Bed bath provided for pt. Pt noted with loose stool. Isolation precautions in place. Safety and comfort measures rendered.
--- NOTE | 2017-06-20 19:45 | NUR ---
ICU/YARD LABOR SUPERVISOR RECEIVED REPORT FROM DAY NURSE. PT IS OBTUNDED. PT IS BIPAP MASK TOLERATING CURRENT SETTINGS, SATURATION IS 95%. PT ALSO HAS LEFT CHEST WALL PACEMAKER, PT AV PACING. PT IS CURRENTLY NPO. FITZGERALD CATH DRAINING VERY LITTLE TO NO URINE OUTPUT . PT HAS A FEW SKIN ISSUES THAT ARE DISCUSSED ON FLOW SHEET. PT TURNED AND REPOSITIONED FOR COMFORT AND CARE. NO ACUTE DISTRESS SEEN AT THIS TIME, PT APPEARS COMFORTABLE. WILL MONITOR THE PT.
[2017-06-20] MEDS: VANCOMYCIN 500 MG in IV D5W 100 ML IV SCH (20:42)
--- NOTE | 2017-06-20 21:00 | NUR ---
ICU/TUBE AND MANIFOLD BUILDER PT'S DAUGHTER AT BEDSIDE ASKED ABOUT PT'S CONDITION, GAVE HER UPDATES. ASKED ABOUT PLAN OF CARE FOR THIS PT. SAID THAT SHE WOULD TALK TO HER BROTHER AND WILL GET BACK WITH AN ANSWER.
--- NOTE | 2017-06-20 21:55 | NUR ---
ICU/MEDICAL RECORDS AUDITOR PT'S HEART RATE TO THE 30'S, CHANGED THE CORDS THEN CHANGED LEADS A FEW TIMES. UNABLE TO GET A CLEAR READING ON THE BEDSIDE TELY BOX. RT WAS CALLED AND CHANGED PT'S ROOM TO GET A BETTER LOOK AT LEADS. PT WAS THEN CHANGED POSITIONED FOR COMFORT AND CARE.
--- NOTE | 2017-06-20 22:20 | NUR ---
ICU/PRODUCT PROMOTER SALES PERSON PT'S SON AND GRANDDAUGHTER AT BEDSIDE, ASKED ABOUT PT'S CONDITION. GAVE AN UPDATE ABOUT PT'S CONDITION, THEN ASKED ABOUT PLAN OF CARE. SAID THAT PT'S SON SAID HE WILL CONSULT WITH TO HIS OTHER DAUGHTER WHO IS A [employer] IN [place]. THEN TOOK PICTURES OF THE MONITOR, IV'S THAT ARE HANGING UP, WELL THE PT'S ARMS AND LEGS. PT'S SON EXPRESSED CONCERN, ABOUT GIVEN PAIN MEDICATION. SAID THAT HE "WANTS TO PROLONG PT'S LIFE. AND THAT IS WHY HE IS HERE IN THE HOSPITAL AND NOT ON HOSPICE CARE."THEN SAID HE WOULD CALL LATER [facility].
--- NOTE | 2017-06-20 23:45 | NUR ---
ICU/CERTIFIED DIABETES EDUCATOR PT'S GRANDDAUGHTER CALLED ASKED ABOUT IF THE DVT WAS NEW VS OLD. THEN ASKED ABOUT EDEMA TO ARMS AND LEGS. THEN VIA FATHER NEAR HER ASKED ABOUT CERTAIN OTHER ISSUES. SUCH THE FACT PT HAS LITTLE TO NO URINE OUTPUT AND WHAT WAS BEING DONE ABOUT THIS. THEN WHAT WAS EXPRESSED IN REPOST FROM THE PAST FEW DAYS ABOUT COMFORT CARE WAS STILL THE PLAN OF ACTION. PT'S GRANDDAUGHTER WAS UNSURE ABOUT THIS. SAID THAT SHE WOULD CALL BACK. APPEARS TO BE A MISCOMMUNICATION BETWEEN IMMEDIATE FAMILY AND EXTENDED FAMILY. CHARGE NURSE AWARE OF THE DISCREPANCY IN FUTURE PLAN OF CARE FOR THIS PT.
[2017-06-21] VITALS (21 sets, daily range): BP systolic 95–116; BP diastolic 21–71
--- NOTE | 2017-06-21 00:12 | NUR ---
ICU/HOOP DRIVING MACHINE OPERATOR PT'S SON CALLED SAID HE HAD TALKED WITH SISTER AND THAT LATER TODAY THERE WILL BE A MEETING WITH ALL FAMILY MEMBERS TO DECIDE ON THE FUTURE PLAN OF CARE. ENCOURAGE SON TO TAKE PART IN THE MEETING TO MAKE SURE OTHERS ARE AWARE OF HIS WISHES MOVING FORWARD. TO AVOID ANY MISUNDERSTANDING AND MISCOMMUNICATION BETWEEN HIMSELF AND OTHER FAMILY MEMBERS. HE SAID HE WOULD.
[2017-06-21] MEDS: PIPERACILLIN /TAZOBACTAM 2.25 G in IV D5W 50 ML IV SCH ×3 (00:52→11:21)
[2017-06-21] MEDS: BLOOD SUGAR DIAGNOSTIC 1 EACH STRIP IN SCH ×3 (01:00→11:34)
--- NOTE | 2017-06-21 01:00 | NUR ---
ICU/BEEF TRIMMER BLOOD SUGAR IS 146, 2 UNITS WERE GIVEN TO COVER THIS. IVF ARE D5W@100ML/HR. WILL CONTINUE TO MONITOR THIS.
[2017-06-21] MEDS: INSULIN REGULAR, HUMAN 100 UNIT/ML 3 ML VIAL SQ PRN (01:02)
[2017-06-21 04:40] LABS: BASOPHILS % (AUTO) 0.2 % (0.0-2.0); EOSINOPHILS % (AUTO) 0.4 % (0.0-6.0); HEMATOCRIT 26 % (39-51); HEMOGLOBIN 8.8 g/dL (13.5-17.5); LYMPHOCYTES # (AUTO) 0.8 /CMM (0.8-4.8); MEAN CORPUSCULAR HEMOGLOBIN 35 PG (26.0-33.0); MEAN CORPUSCULAR HGB CONC 34 g/dl (31.0-36.0); MEAN CORPUSCULAR VOLUME 103 fL (80-96); MONOCYTES # (AUTO) 0.1 /CMM (0.1-1.30); MONOCYTES % (AUTO) 1.3 % (2.0-12.0); NEUTROPHILS % (AUTO) 87.1 % (43.0-81.0); PLATELET COUNT (AUTO) 75 /CMM (150-450); RDW COEFFICIENT OF VARIATION 18.5 (11.5-15.0); RED BLOOD CELL COUNT(AUTO) 2.49 MIL/uL (4.5-6.0); WHITE BLOOD COUNT (AUTO) 6.8 K/uL (4.3-11.0)
[2017-06-21 04:56] LABS: CALCIUM, SERUM 6.8 mg/dL (8.5-10.1); CARBON DIOXIDE 18 mmol/L (21-32); CHLORIDE 118 mmol/L (98-107); GLUCOSE 104 mg/dL (74-106); MAGNESIUM 1.9 mg/dL (1.8-2.4); POTASSIUM 3.4 mmol/L (3.5-5.1); SODIUM SERUM 150 mmol/L (136-145); UREA NITROGEN, BLOOD 39 mg/dL (7-18)
[2017-06-21] MEDS: METRONIDAZOLE 500MG/ NS 100ML 500 MG in PREMIX 1 EA IV SCH (05:09)
[2017-06-21 05:11] LABS: BAND % (MANUAL) 12 % (0.0-5.0); LYMPHOCYTES % (MANUAL) 15 % (16-48); NEUTROPHILS % (MANUAL) 73 (42-76)
[2017-06-21] MEDS: IV D5W 1,000 ML IV PRN (05:32)
[2017-06-21] MEDS: PANTOPRAZOLE 40 MG/PACK PACK PO SCH (08:01)
[2017-06-21] MEDS: CLOPIDOGREL BISULFATE 75 MG TABLET PO SCH (08:01)
[2017-06-21] MEDS: ATENOLOL 25 MG TABLET PO SCH (08:01)
[2017-06-21] MEDS: glipiZIDE 10 MG TABLET PO SCH (08:01)
[2017-06-21] MEDS: HYDROGEL DRESSING 90 GM TUBE TP SCH (08:03)
--- NOTE | 2017-06-21 09:20 | NUR ---
D/W DR YAÑEZ THE CASE. PT IS STRUGGLING TO BREATHE AND GASPING FOR AIR AND BELIEVES THAT PAIN MED MUST BE GIVEN FOR THIS DNI/DNR PT ON BIPAP MAX SETTING. BOTH DR YAÑEZ AND I D/W DAUGHTER YUNIER TELEPHONICALLY -SHE WILL CALL HER BROTHERS TO CONFER DR YAÑEZ DESCRIBED TO YUNIER THAT PAIN MED. IS MANDATORY. COURTESY CALL PLACED TO VICKIE PELLETIER WHO DOES NOT ANSWER AT THIS TIME
[2017-06-21] MEDS ORDERED: POTASSIUM CL. PREMIX PERIPHER. 50 ML IV SCH (10:15)
[2017-06-21] MEDS ORDERED: MORPHINE SULFATE INJ 2 MG/ML DISP.SYRIN IV PRN (10:30)
--- NOTE | 2017-06-21 10:37 | NUR ---
ICU/RN - Notes Pt appears to be struggling and gasping to breath, elevated BP 131/52. Administered Morphine 2mg IVP as ordered PRN. Comfort measures rendered. Will reassess accordingly.
--- NOTE | 2017-06-21 12:10 | NUR ---
MET WITH PT'S SON SHANNON SIMMS WHO DIRECTS PALLIATIVE CARE, STOP BIPAP AND D/C ALL MEDS AND USE MORPHINE FOR COMFORT. SON MET WITH DR YAÑEZ HERE IN ICU AND ORDERS RECEIVED FOR SAME.
[2017-06-21] MEDS ORDERED: MORPHINE SULFATE PF DRIP 250 MG in IV D5W 240 ML IV PRN (12:30)
--- NOTE | 2017-06-21 13:45 | NUR ---
ICU/RN - Notes Morphine drip initiated as ordered. Family at bedside.
--- NOTE | 2017-06-21 15:09 | NUR ---
PT TAKEN OFF BIPAP PER COMFORT CARE ORDERS AND PLACED AT 1LPM NASAL CANNULA. DILMA DARNELL AT BEDSIDE WELL FAMILY.
--- NOTE | 2017-06-21 17:12 | NUR ---
PT PRONOUNCED . COMFORT CARE. DNR/DNI STATUS. NO SPONTANEOUS RESPIRATORY EFFORT. MONITOR SHOWS PACING SPIKES WITHOUT HEART TONES OR PALPABLE PULSES. NO OBTAINABLE BP. PUPILS FIXED AND DILATED. FAMILY AT BEDSIDE
== END 2017-06-21 17:12 | disposition expired | DRG 871 ==
LOC: ER 18:26 → EDBD 18:26 → ICU 20:50
PROVIDERS: ADMIT Nurse Practitioner Acute Care; ATTEND Nurse Practitioner Acute Care
PROC: 02HV33Z Insertion of Infusion Device into Superior Vena Cava, Percutaneous Approach (ICD-10-PCS; principal; 2017-06-16)
PROC: B548ZZA Ultrasonography of Superior Vena Cava, Guidance (ICD-10-PCS; 2017-06-16)
PROC: 5A09557 Assistance with Respiratory Ventilation, Greater than 96 Consecutive Hours, Continuous Positive Airway Pressure (ICD-10-PCS; 2017-06-16)
DX: A41.9 Sepsis, unspecified organism (principal); I21.4 Non-ST elevation (NSTEMI) myocardial infarction; I63.9 Cerebral infarction, unspecified; E43 Unspecified severe protein-calorie malnutrition; Z51.5 Encounter for palliative care; G92 Toxic encephalopathy; N17.0 Acute kidney failure with tubular necrosis; J96.01 Acute respiratory failure with hypoxia; J69.0 Pneumonitis due to inhalation of food and vomit; A04.7 Enterocolitis due to Clostridium difficile; E87.0 Hyperosmolality and hypernatremia; J98.11 Atelectasis; N39.0 Urinary tract infection, site not specified; Z68.1 Body mass index [BMI] 19.9 or less, adult; D53.9 Nutritional anemia, unspecified; D69.6 Thrombocytopenia, unspecified; E10.9 Type 1 diabetes mellitus without complications; E78.5 Hyperlipidemia, unspecified; E86.0 Dehydration; E87.6 Hypokalemia; F03.90 Unspecified dementia, unspecified severity, without behavioral disturbance, psychotic disturbance, mood disturbance, and anxiety; I48.91 Unspecified atrial fibrillation; I10 Essential (primary) hypertension; Z66 Do not resuscitate; Z86.73 Personal history of transient ischemic attack (TIA), and cerebral infarction without residual deficits; Z86.19 Personal history of other infectious and parasitic diseases; R65.20 Severe sepsis without septic shock; E88.09 Other disorders of plasma-protein metabolism, not elsewhere classified; Z95.0 Presence of cardiac pacemaker; E87.8 Other disorders of electrolyte and fluid balance, not elsewhere classified; Z79.4 Long term (current) use of insulin
CPT/HCPCS: 36415; 36569; 36600; 70450-TC; 71010-TC; 80048-TC; 80053-TC; 80061-TC; 80076-TC; 80202-TC; 81000-TC; 82728-TC; 82746; 82962-TC; 83540-TC; 83605-TC; 83735-TC; 83935-TC; 84100-TC; 84295-TC; 84300-TC; 84439-TC; 84443-TC; 84484-TC; 85025-TC; 85378-TC; 85730-TC; 86592; 87040-TC; 87081-TC; 87086-TC; 93307-TC; 93970-TC; 94762-TC; 94799-TC; 95819-TC; 99082-TC; A4216; A4606; A6248; C9113; J1815; J2270; J2274; J2543; J3370; J3475; J3480; J3490; J7030; J7040; J7060; J7070; Z7610